=== PATIENT | female | born 1995 | race Caucasian/White ===

== ENCOUNTER 2023-11-22 01:09 | Emergency (ER) | payer OTHER ==
[~2023-11-22] VITALS: Ht 177.8 cm; Wt 72.0 kg
[2023-11-22 01:25] VITALS: BP 117/74
[2023-11-22 01:31] VITALS: BP 124/88
[2023-11-22] MEDS ORDERED: SODIUM CHLORIDE 0.9% 1,000 ML IV ONE ×2 (01:35)
[2023-11-22] MEDS ORDERED: SHAROBEL0.35 MG PO (01:39)
[2023-11-22] MEDS ORDERED: [UNRECOGNIZED DRUG - OTHER] (01:41)
[2023-11-22 02:00] LABS: BASO% 0.7 % (0-3); EOS% 3.8 % (0-8); HEMATOCRIT 37.8 % (37.0-47.0); HEMOGLOBIN 12.7 g/dl (12.0-16.0); LYMPH% 52.8 % (15-41); MEAN CELL VOLUME 90.6 fL CALC (80.0-100.0); MEAN CORPUSCULAR HGB 30.5 pG CALC (26.0-32.0); MEAN CORPUSCULAR HGB CONC 33.6 g/dL CAL (32.0-36.0); MONO% 11.2 % (2-13); NEUT# 2.23 thou/uL (2.00-7.15); NEUT% 31.5 % (42-76); RED BLOOD COUNT 4.17 mill/uL (4.20-5.60)
[2023-11-22 02:16] LABS: ALBUMIN 4.7 g/dL (3.2-5.0); BILIRUBIN, TOTAL 0.7 mg/dL (0.02-1.3); CREATININE 1.2 mg/dL (0.5-1.0); TOTAL PROTEIN 7.5 g/dL (6.3-8.2)
[2023-11-22 03:02] LABS: URINE BILIRUBIN - DIPSTICK Negative (NEGATIVE); URINE BLOOD DIPSTICK Trace-intact (NEGATIVE); URINE GLUCOSE - DIPSTICK Negative (NEGATIVE); URINE KETONE Negative (NEGATIVE); URINE LEUK ESTERASE Negative (NEGATIVE); URINE NITRITE - DIPSTICK Negative (Negative); URINE PH 5.5 (4.5-8.0); URINE PROTEIN - DIPSTICK Negative (NEG-TRACE); URINE SPECIFIC GRAVITY 1.025; URINE UROBILINOGEN - DIPSTICK 0.2 E.U./dL (0.2)
[2023-11-22 03:03] LABS: URINE COLOR Yellow
[2023-11-22 03:20] VITALS: BP 124/88
== END 2023-11-22 03:20 | disposition home or self-care (01) | DRG 641 ==
LOC: ED 01:09
PROVIDERS: Family Medicine
DX: E86.0 Dehydration (principal)